=== PATIENT | female | born 1975 | race Caucasian/White ===

== ENCOUNTER 2016-07-07 21:06 | Emergency (ER) | payer OTHER ==
--- NOTE | ~2016-07-07 | CR63 ---
[facility] A Service of [facility] RADIOLOGY TEXT RESULTS PATIENT: FILOMENA RAMÍREZ LOCATION: SED : 75 UNIT #: [id number] AGE: [address]: Pavan Juan MD SEX: F ORDER DR: [id number] [place] [id number] E MR#: [id number] Acc #: [id number] NAME: FILOMENA RAMÍREZ : 1975 SEX: F STUDY DATE/TIME: 07/07/2016 20:20 UNIT: SED ROOM: STUDY DESCRIPTION: CR Chest 2 View Attending Physician: Pavan Juan M.D. Ordering Physician: Pavan Juan M.D. MEDICAL IMAGING REPORT This report is preliminary unless electronic signature is present. EXAM Chest x-ray 2 views, 07/07/2016 HISTORY Short of air, heart palpitations for 1 week off and on. COMMENT 2 views of the chest are reviewed. No previous. No pleural effusion. Minimal thoracic degenerative change. Heart size is normal. No acute appearing parenchymal infiltrate or acute congestive failure and no pneumothorax. IMPRESSION No active disease. Dictated by... Carmen Aviles M.D. THIS IS AN ELECTRONICALLY VERIFIED REPORT Carmen Aviles M.D. at 07/09/2016 7:47 AM ANGELINA/donaldo TD: 07/09/2016 04:46 JOB #: [id number] MEDICAL IMAGING REPORT
--- NOTE | ~2016-07-07 | EKG ---
PATIENT: FILOMENA RAMÍREZ UNIT #: [id number] Ventricular Rate: 88 BPM Atrial Rate: 88 BPM P-R Interval: 152 ms QRS Duration: 86 ms Q-T Interval: 354 ms QTC Calculation(Bezet): 428 ms P [place]: 66 degrees Calculated R [place]: 81 degrees Calculated T [place]: -28 degrees Diagnosis Line: Normal sinus rhythm Diagnosis Line: ST and T wave abnormality, consider inferior Diagnosis Line: ischemia Diagnosis Line: Abnormal ECG Diagnosis Line: Diagnosis Line: Confirmed by RICK PNIEDA MD ([id number]) on 07/13/2016 Diagnosis Line: 9:37:21 AM INTERPRETING MD: EDWIN YI
[2016-07-07 20:20] LABS: BASOPHIL% 0.3 % (0-2.5); EOSINOPHIL# 0.2 X10e3 (0-0.7); EOSINOPHIL% 2.8 % (0.0-7.0); HEMATOCRIT 43.5 % (35.0-45.0); HEMOGLOBIN 14.2 gm/dL (12.0-16.0); LYMPHOCYTE% 41.1 % (17.0-45.0); MEAN CELL VOLUME 90.1 FL (83-96); MEAN CORPUSCULAR HEMOGLOBIN 29.3 PG (28-34); MEAN CORPUSCULAR HGB CONC 32.5 g/dL (30-36); MEAN PLATELET VOLUME 8.8 FL (6.5-11.5); MONOCYTE# 0.3 X10e3 (0-1.0); MONOCYTE% 4.5 % (3.0-12.0); NEUTROPHIL# 3.7 X10e3 (1.5-7.1); NEUTROPHIL% 51.3 % (40-75); PLATELET COUNT 258 X10e3 (140-420); RED BLOOD COUNT 4.83 X10e (3.90-5.30); RED CELL DISTRIBUTION WIDTH 13.5 % (11.0-15.5); WHITE BLOOD COUNT 7.2 X10e3 (4.0-10.5)
[2016-07-07 20:21] LABS: DIFF IND NO
[2016-07-07 20:25] LABS: POC - CKMB <1.0 ng/mL (0.0-7.9); POC - MYOGLOBIN 27.9 ng/mL (0.0-169.0)
[2016-07-07 20:26] LABS: POC - TROPONIN <0.05 ng/mL (<=0.05)
[2016-07-07 20:35] LABS: BLOOD UREA NITROGEN 22 mg/dL (9-23); BUN/CREATININE RATIO 31.42; CALCIUM SERUM 9.4 mg/dL (8.4-10.2); CARBON DIOXIDE 24 mmol/L (22-31); CHLORIDE 104 mmol/L (100-111); CREATININE SERUM 0.7 mg/dL (0.6-1.4); GLOM FILT RATE Estimated ABOVE60 mL/min (>60); GLUCOSE FASTING 91 mg/dL (70-110); SODIUM 136 mmol/L (135-145)
[~2016-07-07 21:06] MED LIST: FLEXERIL; MOBIC15 MG; PROBIOTIC1 EAC1; TOPAMAX
== END 2016-07-07 22:14 | disposition home or self-care (01) ==
LOC: SED 21:06
PROVIDERS: Emergency Medicine
DX: E87.6 Hypokalemia (principal); M54.5 Low back pain; Z88.2 Allergy status to sulfonamides; G43.909 Migraine, unspecified, not intractable, without status migrainosus
CPT/HCPCS: 36415; 71020; 80048; 82553; 83874; 84443; 84484; 85025; 93005; 99284